=== PATIENT | male | born 1970 | race Caucasian/White ===

== ENCOUNTER → 2024-10-04 07:31 | Outpatient (REF) | payer OTHER, SELFPAY | LOC: HWRAD 07:31 | PROVIDERS: ATTENDING PHYSICIAN Internal Medicine | DX: R22.2 Localized swelling, mass and lump, trunk (principal); R22.1 Localized swelling, mass and lump, neck | CPT/HCPCS: 71250 ==

== ENCOUNTER → 2024-10-22 13:05 | Outpatient (REF) | payer OTHER, SELFPAY | LOC: RAD 13:05 | PROVIDERS: ATTENDING PHYSICIAN Internal Medicine | DX: R22.1 Localized swelling, mass and lump, neck (principal); R22.2 Localized swelling, mass and lump, trunk; R93.89 Abnormal findings on diagnostic imaging of other specified body structures | CPT/HCPCS: 76536 ==

== ENCOUNTER → 2025-01-07 14:53 | Outpatient (REF) | payer OTHER, SELFPAY | LOC: HWRCS 14:53 | PROVIDERS: ATTENDING PHYSICIAN Registered Nurse; REFERRING PHYSICIAN Internal Medicine Cardiovascular Disease | DX: R00.2 Palpitations (principal); I48.0 Paroxysmal atrial fibrillation | CPT/HCPCS: 93306 ==

== ENCOUNTER → 2025-01-08 10:21 | Outpatient (REF) | payer OTHER, SELFPAY | LOC: RCS 10:21 | PROVIDERS: ATTENDING PHYSICIAN Registered Nurse | DX: I48.0 Paroxysmal atrial fibrillation (principal) | CPT/HCPCS: 93017 ==

== ENCOUNTER → 2025-01-22 11:39 | Outpatient (REF) | payer OTHER, SELFPAY | LOC: HWRCS 11:39 | PROVIDERS: ATTENDING PHYSICIAN Internal Medicine Cardiovascular Disease; FAMILY PHYSICIAN Internal Medicine | DX: R94.39 Abnormal result of other cardiovascular function study (principal); R00.2 Palpitations; R42 Dizziness and giddiness | CPT/HCPCS: 78452; 93017; A9500 ==

== ENCOUNTER → 2025-04-30 08:19 | Outpatient (REF) | payer OTHER, SELFPAY | LOC: DHSLP 08:19 | PROVIDERS: ATTENDING PHYSICIAN Internal Medicine; FAMILY PHYSICIAN Internal Medicine | DX: G47.19 Other hypersomnia (principal); R06.83 Snoring | CPT/HCPCS: 95800 ==

== ENCOUNTER → 2025-05-15 10:12 | Outpatient (REF) | payer OTHER, SELFPAY | LOC: RCS 10:12 | PROVIDERS: ATTENDING PHYSICIAN Internal Medicine Cardiovascular Disease; FAMILY PHYSICIAN Internal Medicine | DX: I48.0 Paroxysmal atrial fibrillation (principal); R00.1 Bradycardia, unspecified; E78.00 Pure hypercholesterolemia, unspecified | CPT/HCPCS: 93225; 93226 ==

== ENCOUNTER → 2025-06-18 12:52 | Outpatient (REF) | payer OTHER, SELFPAY | LOC: RAD 12:52 | PROVIDERS: ATTENDING PHYSICIAN Internal Medicine | DX: M79.89 Other specified soft tissue disorders (principal) | CPT/HCPCS: 73660 ==

== ENCOUNTER 2025-07-15 06:25 | Day surgery (SDC) | payer OTHER, SELFPAY | END 2025-07-15 13:10 | disposition home or self-care (01) | LOC: GI 06:25 | PROVIDERS: ATTENDING PHYSICIAN Internal Medicine | DX: Z12.11 Encounter for screening for malignant neoplasm of colon (principal); K57.30 Diverticulosis of large intestine without perforation or abscess without bleeding; K64.9 Unspecified hemorrhoids; K63.5 Polyp of colon; Z83.719 Family history of colon polyps, unspecified | CPT/HCPCS: 45380; 88305 ==